=== PATIENT | female | born 1990 | race Caucasian/White ===

== ENCOUNTER 2016-10-28 20:59 | Emergency (ER) | payer OTHER ==
--- NOTE | ~2016-10-28 | CR63 ---
[facility]. [facility] A Service of [facility] & [facility] RADIOLOGY TEXT RESULTS PATIENT: ALLY SIMON LOCATION: SED : 89 UNIT #: [id number] AGE: [address]: Frieda Tate APRN SEX: F ORDER DR: [id number] [address] [address] [id number] E MR#: [id number] Acc #: [id number] NAME: ALLY SIMON : 1990 SEX: F STUDY DATE/TIME: 10/28/2016 21:42 UNIT: SED ROOM: STUDY DESCRIPTION: CR Chest 2 View Attending Physician: Frieda Tate A.P.R.N. Ordering Physician: Frieda Tate A.P.R.N. Primary Care Physician: Primary Care Physician No MEDICAL IMAGING REPORT This report is preliminary unless electronic signature is present. EXAM PA and lateral chest, 10/28 COMPARISON STUDIES None HISTORY SUPPLIED Cough, right-sided chest and back pain beginning today. FINDINGS PA and lateral views are obtained. The cardiovascular configuration of the chest is normal and the lungs are clear. CONCLUSION Normal chest. Dictated by... Bob Garcia M.D. THIS IS AN ELECTRONICALLY VERIFIED REPORT Bob Garcia M.D. at 11/01/2016 7:21 AM YOJANA/agatha TD: 10/29/2016 02:15 JOB #: [id number] MEDICAL IMAGING REPORT Page 1 of 1
--- NOTE | ~2016-10-28 | EKG ---
PATIENT: ALLY SIMON UNIT #: [id number] Ventricular Rate: 56 BPM Atrial Rate: 56 BPM P-R Interval: 136 ms QRS Duration: 80 ms Q-T Interval: 398 ms QTC Calculation(Bezet): 384 ms P [place]: 49 degrees Calculated R [place]: 78 degrees Calculated T [place]: 72 degrees Diagnosis Line: Sinus bradycardia with sinus arrhythmia Diagnosis Line: Otherwise normal ECG Diagnosis Line: No previous ECGs available Diagnosis Line: Confirmed by INDIO VAUGHN MD ([id number]) on Diagnosis Line: 10/30/2016 12:04:00 PM INTERPRETING MD: RODERICK GARCIA
[~2016-10-28 20:59] MED LIST: BACTRIM DS TABL1 TA1 PO; PHENAZOPYRIDIN100 MG PO; PHENERGAN25 M1 PO
[2016-10-28 21:18] LABS: BASOPHIL% 0.4 % (0-2.5); EOSINOPHIL% 0.8 % (0.0-7.0); HEMATOCRIT 38.3 % (35.0-45.0); HEMOGLOBIN 12.9 gm/dL (12.0-16.0); LYMPHOCYTE# 2.3 X10e3 (1.0-3.5); LYMPHOCYTE% 43.6 % (17.0-45.0); MEAN CELL VOLUME 90.1 FL (83-96); MEAN CORPUSCULAR HEMOGLOBIN 30.3 PG (28-34); MEAN CORPUSCULAR HGB CONC 33.6 g/dL (30-36); MEAN PLATELET VOLUME 7.3 FL (6.5-11.5); MONOCYTE# 0.3 X10e3 (0-1.0); MONOCYTE% 5.4 % (3.0-12.0); NEUTROPHIL# 2.6 X10e3 (1.5-7.1); NEUTROPHIL% 49.8 % (40-75); PLATELET COUNT 201 X10e3 (140-420); RED BLOOD COUNT 4.25 X10e (3.90-5.30); RED CELL DISTRIBUTION WIDTH 13.4 % (11.0-15.5); WHITE BLOOD COUNT 5.2 X10e3 (4.0-10.5)
[2016-10-28 21:26] LABS: DIFF IND NO
[2016-10-28 21:33] LABS: POC - CKMB <1.0 ng/mL (0.0-7.9); POC - TROPONIN <0.05 ng/mL (<=0.05)
[2016-10-28 21:35] LABS: URINE SOURCE CLEAN CATCH
[2016-10-28 21:37] LABS: CALCIUM SERUM 9.2 mg/dL (8.4-10.2); CREATININE SERUM 0.5 mg/dL (0.6-1.4); GLOM FILT RATE Estimated 134.5 mL/min (>60); POTASSIUM 3.7 mmol/L (3.5-5.1)
[2016-10-28 21:37] LABS: URINE APPEARANCE CLEAR; URINE BILIRUBIN NEG (NEG); URINE BLOOD NEG (NEG); URINE COLOR YELLOW; URINE GLUCOSE NEG (NORM); URINE KETONE NEG (NEG); URINE LEUKOCYTE ESTERASE NEG (NEG); URINE NITRATE NEG (NEG); URINE PH 6.5 (5-8); URINE PROTEIN NEG (NEG); URINE UROBILINOGEN 0.2 MG/DL (NORM)
[2016-10-28 21:39] LABS: MICRO INDICATED? NO
== END 2016-10-28 22:34 | disposition home or self-care (01) ==
LOC: SED 20:59
PROVIDERS: Nurse Practitioner Family
DX: R07.81 Pleurodynia (principal); R05 Cough; F17.200 Nicotine dependence, unspecified, uncomplicated
CPT/HCPCS: 36415; 71020; 80048; 81003; 82553; 84484; 84703; 85025; 93005; 96372; 99284; J1885